=== PATIENT | male | born 1965 | race Caucasian/White ===

== ENCOUNTER 2021-05-16 09:04 | Outpatient (REF) | payer OTHER, SELFPAY ==
[2021-05-16 14:54] LABS: Calculated LDL 137 mg/dL (<100); Cholesterol 203 mg/dL (<200); Glucose 102 mg/dL (74-106); HDL Cholesterol 46 mg/dL (40-60); Triglyceride 100 mg/dL (<150)
== END 2021-05-16 09:05 | disposition home or self-care (01) ==
LOC: NCHCN 09:04
PROVIDERS: PCP Internal Medicine; Visit Provider Family Medicine
DX: Z00.00 Encounter for general adult medical examination without abnormal findings (principal)
CPT/HCPCS: 80061; 82947